=== PATIENT | female | born 1975 | race Hispanic/Latino ===

== ENCOUNTER 2021-05-06 11:56 | Emergency (ER) | payer OTHER ==
[2021-05-06 12:45] VITALS: BP 122/77
--- NOTE | 2021-05-06 13:44 | Event Note ---
ED Screening Note Date of service: 05/06/21 Time: 13:39 ED Screening Note: 46-year-old female with a past medical history of gastric bypass and cholecystectomy presents to the emergency department for evaluation of 2-day history of worsening abdominal pain. She states that she had a bulge to her umbilical area yesterday that has improved but still there and painful. She denies fever, vomiting, diarrhea, dysuria, and vaginal discharge. This initial assessment/diagnostic orders/clinical plan/treatment(s) is/are subject to change based on patients health status, clinical progression and re- assessment by fellow clinical providers in the ED. Further treatment and workup at subsequent clinical providers discretion. Patient/guardian urged not to elope from the ED as their condition may be serious if not clinically assessed and managed. Initial orders include:
[2021-05-06] MEDS ORDERED: ONDANSETRON 4 MG/2 ML INJ IV ONE (14:36)
[2021-05-06] MEDS ORDERED: SODIUM CHLORIDE 0.9% 1000 ML 1,000 ML IV ONE (14:36)
[2021-05-06] MEDS ORDERED: HYDROcodone/ACETAMINOPHEN 5-325 MG TAB PO ONE (14:37)
--- NOTE | 2021-05-06 14:38 | Emergency Department Report ---
ED Abdominal Pain HPI - General Chief Complaint: Abdominal Pain Stated Complaint: HERNIA IN AB Time Seen by Provider: 05/06/21 14:20 Source: patient Mode of arrival: Ambulatory Limitations: No Limitations - History of Present Illness Initial Comments: 46 year old female presents to ED with complaints of periumbilical pain and concern for possible hernia. Onset 2 days ago. She reports nausea but no vomiting. She states that she feels a knot in her periumbilical earlier and she is concerned that it could be related to her hernia. She is status post gastric bypass surgery which was done April 2018. She denies any bowel changes, fever, chills, chest pain, shortness of breath or UTI symptoms. MD Complaint: abdominal pain, other (possible hernia ) -: days(s) (2) Severity scale (0 -10): 6 - Related Data Previous Rx's Medication Instructions Recorded Last Taken Type Docusate Sodium [Colace] 100 mg PO BID PRN #30 capsule 05/06/21 Unknown Rx HYDROcodone/APAP 5-325 [[place] 1 each PO Q4HR PRN #10 tablet 05/06/21 Unknown Rx 5/325] Iron/Mfolate/C/E/B12/Biot/Kristian 1 each PO DAILY #30 tab 05/06/21 Unknown Rx [Hemax Tablet] Ondansetron [Zofran Odt] 4 mg PO Q8HR #15 tab.rapdis 05/06/21 Unknown Rx Allergies Allergy/AdvReac Type Severity Reaction Status Date / Time lidocaine [From Xylocaine] Allergy Swelling Verified 05/06/21 12:42 ED Review of Systems ROS: Stated complaint: HERNIA IN AB Other details as noted in HPI Comment: All other systems reviewed and negative Constitutional: denies: chills, fever Eyes: denies: eye pain, eye discharge, vision change ENT: denies: ear pain, throat pain, dental pain, hearing loss, epistaxis, congestion Respiratory: denies: cough, orthopnea, shortness of breath, SOB with exertion, SOB at rest, stridor, wheezing Cardiovascular: denies: chest pain, palpitations, dyspnea on exertion, edema, syncope, paroxysmal nocturnal dyspnea Gastrointestinal: abdominal pain, nausea. denies: vomiting, diarrhea, constipation, hematemesis, melena, hematochezia Genitourinary: denies: urgency, dysuria, frequency, hematuria, discharge, abnormal menses, dyspareunia Musculoskeletal: denies: back pain, joint swelling, arthralgia Skin: denies: rash, lesions, change in color, change in hair/nails, pruritus Neurological: denies: headache, weakness, numbness, paresthesias, confusion, abnormal gait, vertigo Psychiatric: denies: anxiety, depression, auditory hallucinations, visual hallucinations, homicidal thoughts, suicidal thoughts Hematological/Lymphatic: denies: easy bleeding, easy bruising, swollen glands ED Past Medical Hx - Medications Home Medications: Home Medications Medication Instructions Recorded Confirmed Last Taken Type Docusate Sodium [Colace] 100 mg PO BID PRN #30 capsule 05/06/21 Unknown Rx HYDROcodone/APAP 5-325 [[place] 1 each PO Q4HR PRN #10 tablet 05/06/21 Unknown Rx 5/325] Iron/Mfolate/C/E/B12/Biot/Kristian 1 each PO DAILY #30 tab 05/06/21 Unknown Rx [Hemax Tablet] Ondansetron [Zofran Odt] 4 mg PO Q8HR #15 tab.rapdis 05/06/21 Unknown Rx ED Physical Exam - General Limitations: No Limitations General appearance: alert, in no apparent distress - Head Head exam: Present: atraumatic, normocephalic, normal inspection - Eye Eye exam: Present: normal appearance, PERRL, EOMI Pupils: Present: normal accommodation - Neck Neck exam: Present: normal inspection, full ROM. Absent: meningismus - Respiratory Respiratory exam: Present: normal lung sounds bilaterally. Absent: respiratory distress, wheezes, rales, rhonchi - Cardiovascular Cardiovascular Exam: Present: regular rate, normal rhythm, normal heart sounds - GI/Abdominal GI/Abdominal exam: Present: soft, tenderness (mild ttp just above umbilicus. Patient does have a nodular area in the umbilicus but there could also be a small hernia just above the umbilicus which reduces easily. Mild tenderness to that area.). Absent: distended, guarding, rebound - Neurological Exam Neurological exam: Present: alert, oriented X3, CN II-XII intact, normal gait - Psychiatric Psychiatric exam: Present: normal affect, normal mood - Skin Skin exam: Present: intact ED Course Vital Signs 05/06/21 12:44 Temperature 98.4 F Pulse Rate 104 H Respiratory 18 Rate Blood Pressure 122/77 [Right] O2 Sat by Pulse 98 Oximetry ED Medical Decision Making - Lab Data Result diagrams: 05/06/21 14:07 05/06/21 14:07 - Radiology Data Radiology results: report reviewed Patient: MARICRUZ AMBRIZ MR#: [id number] : 1975 Acct:[id number] Age/Sex: 46 / F ADM Date: 05/06/21 Loc: ED Attending Dr: Ordering Physician: RADHA GREGORIO Date of Service: 05/06/21 Procedure(s): CT abdomen pelvis w con Accession Number(s): [id number] cc: RADHA GREGORIO CT abdomen pelvis w con INDICATION / CLINICAL INFORMATION: periumbilical pain. TECHNIQUE: Axial CT images were obtained through the abdomen and pelvis after 100 cc of Omnipaque [address] scans at this location are performed using CT dose reduction for ALARA by means of automated exposure control. COMPARISON: None available. FINDINGS: LOWER CHEST: No significant abnormality LIVER: The liver is enlarged, measuring 17.7 cm. There is a diminutive appearance of the left hepatic lobe, which may be developmental or postsurgical. No focal lesions. GALLBLADDER/BILIARY TREE: Gallbladder is surgically absent. PANCREAS: No significant abnormality SPLEEN: No significant abnormality. Unenlarged. ADRENALS: No significant abnormality KIDNEYS / URETER: No significant abnormality URINARY BLADDER: No significant abnormality REPRODUCTIVE ORGANS: No significant abnormality STOMACH / BOWEL: Postoperative changes of gastric bypass. There is mild patulous appearance of the small bowel anastomosis in the left upper quadrant, which is likely postsurgical. There is no mural thickening. No extraluminal gas or organized collection. There are multiple loops of nondilated fluid-filled small bowel within the left abdomen with mucosal enhancement. No evidence of small bowel obstruction. There is moderate stool throughout the colon, compatible with constipation. No evidence of localized colonic inflammation. The appendix is not discretely seen, though there are no secondary signs of appendicitis. LYMPH NODES: No significant adenopathy. VASCULATURE: No significant abnormality. OTHER: There is diffuse mesenteric edema. Small volume ascites in the pelvis. No free air. No organized collection. SKELETAL SYSTEM: No acute osseous findings. IMPRESSION: 1. Multiple loops of nondilated fluid-filled small bowel within the left abdomen with mucosal enhancement, nonspecific but may reflect enteritis. 2. Postoperative changes of prior gastric bypass. No evidence of obstruction or localized inflammation in the remainder of the GI tract. 3. Moderate colonic stool burden, compatible with constipation. 4. Diffuse mesenteric edema and small volume ascites, may reflect fluid overload. 5. Other incidental findings as above. Signer Name: Vsena Michelle MD Signed: 05/06/2021 5:36 PM Workstation Name: [id number] Transcribed By: SILAS Dictated By: VESNA MICHELLE MD Electronically Authenticated By: VESNA MICHELLE MD Signed Date/Time: 05/06/21 1352 - Medical Decision Making all labs reviewed - CBC show H/H of 7.8/25 but otherwise unremarkable. Patient does admit she has a history of known anemia for which she take ferrous sulfate. She states that her hemoglobin has been as low as 4 in the past. CMP shows no significant abnormalities. There was question of a small periumbilical hernia on exam which was easily reducible. CT scan does not mention a hernia. CT abdomen pelvis shows nonspecific but nonemergent changes requiring emergent surgical or GI or any other specialist intervention. Given the mention of ascites on the CT scan, I did question about alcohol use and patient denies alcohol abuse. Patient currently resting comfortably. She is not toxic or ill- appearing. She is not in any significant distress currently. Discussed all results including CT results with patient. Recommend that she follows up with her surgeon and or GI specialist as well as primary care doctor. She will be given medications to help with her constipation and I recommend that she continues taking her iron supplements. Patient was requesting something for pain but inform her that this could worsen her constipation, for which she expressed understanding. Patient was stable at time of discharge. Critical care attestation.: If time is entered above; I have spent that time in minutes in the direct care of this critically ill patient, excluding procedure time. ED Disposition Clinical Impression: Abdominal pain, Constipation, Chronic anemia Disposition: 01 HOME / SELF CARE / HOMELESS Is pt being admited?: No Does the pt Need Aspirin: No Condition: Stable Instructions: Constipation, Adult, Abdominal Pain, Adult, [id number], Abdominal Pain (ED) Additional Instructions: I recommend that you take the hemax and Colace as prescribed and increase your fiber intake. The hydrocodone can also worsen constipation so is very important that you increase your water and fiber intake and take that stool softener. I recommend you take the Zofran as prescribed to help with nausea vomiting. Increase your water intake. I do recommend that you follow-up with your primary care doctor/General surgeon and or gauge and instrument inspector for further evaluation especially if your symptoms persist. Return to the ER if your symptoms changes or worsens in any way. Prescriptions: Docusate Sodium [Colace] 100 mg PO BID PRN #30 capsule PRN Reason: Constipation Iron/Mfolate/C/E/B12/Biot/Kristian [Hemax Tablet] 1 each PO DAILY #30 tab HYDROcodone/APAP 5-325 [[place] 5/325] 1 each PO Q4HR PRN #10 tablet PRN Reason: Pain Ondansetron [Zofran Odt] 4 mg PO Q8HR #15 tab.gilberto Referrals: SMITH EVERETT MD [Staff Physician] - 3-5 Days (Primary care physician) BIRGIT DUQUE MD [Staff Physician] - 3-5 Days (General surgeon) [facility] [Provider Group] - 3-5 Days Time of Disposition: 17:50
[2021-05-06 15:05] LABS: Hematocrit 25.8 % (30.3-42.9); Hemoglobin 7.8 gm/dl (10.1-14.3); Mean Corpuscular HGB Conc 30 % (30-34); Mean Corpuscular Volume 69 fl (79-97); Platelet Count 380 K/mm3 (140-440); Red Blood Count 3.71 M/mm3 (3.65-5.03); Red Cell Distribution Width 18.1 % (13.2-15.2)
[2021-05-06 15:20] LABS: Alanine Aminotransferase 29 units/L (7-56); Albumin 3.7 g/dL (3.9-5); Blood Urea Nitrogen 14 mg/dL (7-17); Calcium 8.4 mg/dL (8.4-10.2); Hemolysis Index 1
[2021-05-06 15:45] LABS: BUN/Creatinine Ratio 28
--- NOTE | 2021-05-06 17:41 | Cat Scan Report ---
CT abdomen pelvis w con INDICATION / CLINICAL INFORMATION: periumbilical pain. TECHNIQUE: Axial CT images were obtained through the abdomen and pelvis after 100 cc of Omnipaque [address] scans at this location are performed using CT dose reduction for ALARA by means of automated exposure control. COMPARISON: None available. FINDINGS: LOWER CHEST: No significant abnormality LIVER: The liver is enlarged, measuring 17.7 cm. There is a diminutive appearance of the left hepatic lobe, which may be developmental or postsurgical. No focal lesions. GALLBLADDER/BILIARY TREE: Gallbladder is surgically absent. PANCREAS: No significant abnormality SPLEEN: No significant abnormality. Unenlarged. ADRENALS: No significant abnormality KIDNEYS / URETER: No significant abnormality URINARY BLADDER: No significant abnormality REPRODUCTIVE ORGANS: No significant abnormality STOMACH / BOWEL: Postoperative changes of gastric bypass. There is mild patulous appearance of the sm all bowel anastomosis in the left upper quadrant, which is likely postsurgical. There is no mural thi ckening. No extraluminal gas or organized collection. There are multiple loops of nondilated fluid-fi lled small bowel within the left abdomen with mucosal enhancement. No evidence of small bowel obstruc tion. There is moderate stool throughout the colon, compatible with constipation. No evidence of loca lized colonic inflammation. The appendix is not discretely seen, though there are no secondary signs of appendicitis. LYMPH NODES: No significant adenopathy. VASCULATURE: No significant abnormality. OTHER: There is diffuse mesenteric edema. Small volume ascites in the pelvis. No free air. No organiz ed collection. SKELETAL SYSTEM: No acute osseous findings. IMPRESSION: 1. Multiple loops of nondilated fluid-filled small bowel within the left abdomen with mucosal enhance ment, nonspecific but may reflect enteritis. 2. Postoperative changes of prior gastric bypass. No evidence of obstruction or localized inflammatio n in the remainder of the GI tract. 3. Moderate colonic stool burden, compatible with constipation. 4. Diffuse mesenteric edema and small volume ascites, may reflect fluid overload. 5. Other incidental findings as above. Signer Name: hNan Michelle MD Signed: 05/06/2021 5:36 PM Workstation Name: [id number]
== END 2021-05-06 17:55 | disposition home or self-care (01) ==
LOC: ED 11:56
DX: K59.00 Constipation, unspecified (principal); G89.29 Other chronic pain; D64.9 Anemia, unspecified; R10.33 Periumbilical pain; Z88.8 Allergy status to other drugs, medicaments and biological substances; Z79.899 Other long term (current) drug therapy
CPT/HCPCS: 36415; 74177; 80053; 83690; 84703; 85027; 96361; 96374; 99284; J2405; J7030; Q9967; Q0162